=== PATIENT | male | born 1955 | race African-American/Black ===

== ENCOUNTER 2020-07-17 11:55 | Emergency (ER) | payer MEDICARE, MEDICAID ==
[~2020-07-17] VITALS: Ht 185.4 cm; Wt 83.0 kg
[2020-07-17] MEDS ORDERED: HYDROCODONE/ACETAMINOPHEN 5/325MG TABLET PO NR (13:00)
[2020-07-17 13:39] VITALS: BP 148/88
== END 2020-07-17 13:45 ==
LOC: ER 12:47
DX: G89.29 Other chronic pain (principal); M54.30 Sciatica, unspecified side; M54.5 Low back pain; I11.9 Hypertensive heart disease without heart failure; I25.2 Old myocardial infarction; Z95.1 Presence of aortocoronary bypass graft
CPT/HCPCS: 93005; 99283